=== PATIENT | male | born 1965 | race Hispanic/Latino ===

== ENCOUNTER 2017-08-27 05:54 | Day surgery (SDC) | payer BC ==
[2017-08-23 10:54] VITALS: BP 131/84
[2017-08-23 11:02] LABS: BASOPHILS % (AUTO) 0.5 % (0.0-5.0); EOSINOPHILS % (AUTO) 6.2 % (0.0-8.0); HEMATOCRIT 47.8 % (42-54); LYMPHOCYTES % (AUTO) 19.7 % (21.0-51.0); MEAN CORPUSCULAR HEMOGLOBIN 30.3 pg (27.0-33.0); MEAN CORPUSCULAR HGB CONC 33.4 g/dL (32.0-36.0); MEAN CORPUSCULAR VOLUME 90.8 fL (79-99); MONOCYTES % (AUTO) 5.7 % (3.0-13.0); NEUTROPHILS % (AUTO) 67.9 % (40.0-77.0); PLATELET COUNT (AUTO) 187 K/uL (130-400); RED BLOOD CELL COUNT(AUTO) 5.26 MIL/uL (4.50-6.20); RED CELL DISTRIBUTION WIDTH 13.4 % (11.0-15.5); WHITE BLOOD COUNT (AUTO) 6.6 K/uL (4.8-10.8)
[2017-08-23 11:09] LABS: APPEARANCE,URINE Cloudy (CLEAR); BILIRUBIN,URINE Negative (NEGATIVE); COLOR,URINE Yellow (YELLOW); GLUCOSE, URINE (UA) Negative (NEGATIVE); KETONES,URINE Negative (NEGATIVE); LEUKOCYTE ESTERASE ,URINE Trace (NEGATIVE); NITRATE,URINE Negative (NEGATIVE); OCCULT BLOOD,URINE Negative (NEGATIVE); PH,URINE 7.5 (5.0-8.0); PROTEIN,URINE Negative (NEGATIVE)
[2017-08-23 11:14] LABS: POTASSIUM 4.2 mmol/L (3.5-5.1)
[2017-08-23 11:22] LABS: AMORPHOUS SEDIMENT,UR Few /LPF (None Seen); BACTERIA,URINE Rare /HPF (None Seen); RBC,URINE 0-1 /HPF (0-1); SQUAMOUS EPITHELIAL CELL,UR Rare /LPF (0-2); WBC,URINE 0-1 /HPF (0-1)
[2017-08-23 11:29] LABS: INR 1.06 (0.85-1.15); PARTIAL THROMBOPLASTIN TIME 26.9 SEC (26.3-35.5); PROTHROMBIN TIME 11.1 SEC (9.6-11.6)
[2017-08-27] VITALS (9 sets, daily range): BP systolic 120–141; BP diastolic 82–96
[~2017-08-27] VITALS: Ht 177.8 cm; Wt 83.1 kg
[~2017-08-27 05:54] MED LIST: AMLO5TAB2 PO; DEXL60CA3 PO; DOXA2TAB2 PO; HYDR12.530 PO; OLME40TA18 PO; SODIUM CHLORIDE 0.9% 500ML 500 ML IV SCH
[2017-08-27] MEDS ORDERED: HEPARIN SODIUM 1000UNIT/ML 10ML VIAL ONE (07:11)
[2017-08-27] MEDS ORDERED: IOPAMIDOL-370 100 ML VIAL IV ONE (07:11)
[2017-08-27] MEDS ORDERED: IOPAMIDOL-370 75 ML VIAL IV ONE ×2 (07:11→08:10)
[2017-08-27] MEDS ORDERED: LIDOCAINE HCL 2% 20ML ONE (07:11)
[2017-08-27] MEDS ORDERED: NITROGLYCERIN 50 MG/D5% WATER 1 BOT ONE (07:12)
[2017-08-27] MEDS ORDERED: BIVALIRUDIN 250 MG/VIAL IV ONE (07:27)
[2017-08-27] MEDS ORDERED: MIDAZOLAM HCL 1 MG/ML 2ML VIAL ONE (07:51)
[2017-08-27] MEDS ORDERED: FENTANYL CITRATE PF 50 MCG/1 ML 2ML VIAL ONE (07:54)
[2017-08-27] MEDS ORDERED: SODIUM CHLORIDE 0.9% 1000ML 1,000 ML IV SCH (08:31)
[2017-08-27] MEDS ORDERED: SODIUM CHLORIDE 0.9% 1000ML 1,000 ML IV ONE (08:31)
[2017-08-27] MEDS ORDERED: ASPI-1181 PO (08:43)
[2017-08-27] MEDS ORDERED: ATOR20TA65 PO (08:43)
[2017-08-27 09:52] LABS: CHOLESTEROL 159 mg/dL (<200); HDL CHOLESTEROL 41 mg/dL (29-71); LDL DIRECT 107 mg/dL (0-99); TRIGLYCERIDES 88 mg/dL (30-200)
== END 2017-08-27 13:00 | disposition home or self-care (01) ==
LOC: DAH 05:54
PROVIDERS: ATTEND Internal Medicine Cardiovascular Disease
DX: I25.119 Atherosclerotic heart disease of native coronary artery with unspecified angina pectoris (principal); I50.42 Chronic combined systolic (congestive) and diastolic (congestive) heart failure; I42.9 Cardiomyopathy, unspecified; I11.0 Hypertensive heart disease with heart failure; E78.5 Hyperlipidemia, unspecified; K21.9 Gastro-esophageal reflux disease without esophagitis; Z98.890 Other specified postprocedural states; Z83.3 Family history of diabetes mellitus; Z80.9 Family history of malignant neoplasm, unspecified
CPT/HCPCS: 36415 ×2; 71045; 75625; 80048; 80061; 81001; 85025; 85610; 85730; 93005; 93458; 99156; 99157; C1760; C1894; J1644; J2250; J3010; J3490 ×2; J7030; Q9967 ×3; 99152; 99153; J0583

== ENCOUNTER → 2017-08-31 | Outpatient (CLI) | payer BC ==
[~2017-08-31] MED LIST changes: +ASPI-1181 PO; +ATOR20TA65 PO; -SODIUM CHLORIDE 0.9% 500ML 500 ML IV SCH
== END | disposition home or self-care (01) ==
LOC: RAH 15:56
PROVIDERS: ATTEND Internal Medicine Gastroenterology
DX: R93.3 Abnormal findings on diagnostic imaging of other parts of digestive tract (principal); M47.895 Other spondylosis, thoracolumbar region; Z90.49 Acquired absence of other specified parts of digestive tract
CPT/HCPCS: 74018

== ENCOUNTER 2017-09-21 06:30 | Day surgery (SDC) | payer BC ==
[~2017-09-21] VITALS: Ht 177.8 cm; Wt 81.6 kg
[~2017-09-21 06:30] MED LIST changes: -ASPI-1181 PO; -ATOR20TA65 PO; +SODIUM CHLORIDE 0.9% 1000ML 1,000 ML IV ONE
[2017-09-21 07:01] VITALS: BP 103/73
[2017-09-21] MEDS ORDERED: FENTANYL CITRATE PF 50 MCG/1 ML 2ML VIAL ONE (07:52)
[2017-09-21] MEDS ORDERED: PROPOFOL 10 MG/ML 20ML VIAL IV ONE (07:52)
[2017-09-21 08:02] VITALS: BP 98/62
== END 2017-09-21 09:10 ==
LOC: DAH 06:30
PROVIDERS: ATTEND Internal Medicine Gastroenterology
DX: K21.0 Gastro-esophageal reflux disease with esophagitis (principal); I10 Essential (primary) hypertension; G47.33 Obstructive sleep apnea (adult) (pediatric); K22.70 Barrett's esophagus without dysplasia; K44.9 Diaphragmatic hernia without obstruction or gangrene; Z79.899 Other long term (current) drug therapy; Z87.442 Personal history of urinary calculi
CPT/HCPCS: 43235; A4606; J2704; J3010; J7030

== ENCOUNTER 2018-07-26 11:37 | Emergency (ER) | payer BC ==
[~2018-07-26 11:37] MED LIST changes: -AMLO5TAB2 PO; +AMLO5TAB7 PO; -SODIUM CHLORIDE 0.9% 1000ML 1,000 ML IV ONE
[2018-07-26] MEDS ORDERED: OCTYL 2-CYANOACRYLATE 1 EACH TP ONE (12:03)
[2018-07-26] MEDS ORDERED: TETANUS/DIPHTHERIA TOXOID [ADULT] 0.5 ML VIAL IM ONE (12:04)
[2018-07-26] MEDS ORDERED: LIDOCAINE HCL 1% 20 ML VIAL ONE (12:10)
== END 2018-07-26 12:42 | disposition home or self-care (01) ==
LOC: EDH 11:37
DX: S61.012A Laceration without foreign body of left thumb without damage to nail, initial encounter (principal); I10 Essential (primary) hypertension; W23.0XXA Caught, crushed, jammed, or pinched between moving objects, initial encounter; Y93.89 Activity, other specified; Y92.098 Other place in other non-institutional residence as the place of occurrence of the external cause; Y99.8 Other external cause status
CPT/HCPCS: 12001; 90471; 90714

== ENCOUNTER 2019-08-04 05:56 | Day surgery (SDC) | payer BC ==
[~2019-08-04] VITALS: Ht 177.8 cm; Wt 81.6 kg
[~2019-08-04 05:56] MED LIST changes: -AMLO5TAB7 PO; +AMLO5TAB9 PO
[2019-08-04] MEDS ORDERED: SODIUM CHLORIDE 0.9% 1000ML 1,000 ML IV ONE (06:25)
[2019-08-04 07:12] VITALS: BP 122/91
[2019-08-04] MEDS ORDERED: PROPOFOL 10 MG/ML 20ML VIAL IV ONE ×2 (08:25)
[2019-08-04 08:56] VITALS: BP 101/70
[2019-08-04 09:00] VITALS: BP 96/70
[2019-08-04 09:06] VITALS: BP 102/69
[2019-08-04 09:11] VITALS: BP 122/84
[2019-08-04 09:20] VITALS: BP 124/77
== END 2019-08-04 09:30 | disposition home or self-care (01) ==
LOC: DAH 05:56 → ENDO 05:56
PROVIDERS: ATTEND Internal Medicine
DX: Z12.11 Encounter for screening for malignant neoplasm of colon (principal); K21.0 Gastro-esophageal reflux disease with esophagitis; K44.9 Diaphragmatic hernia without obstruction or gangrene; K29.70 Gastritis, unspecified, without bleeding; K57.30 Diverticulosis of large intestine without perforation or abscess without bleeding; I10 Essential (primary) hypertension; G47.30 Sleep apnea, unspecified; Z79.899 Other long term (current) drug therapy; Z90.49 Acquired absence of other specified parts of digestive tract; Z72.89 Other problems related to lifestyle; Z98.890 Other specified postprocedural states; Z83.71 Family history of colonic polyps; Z83.3 Family history of diabetes mellitus; Z82.5 Family history of asthma and other chronic lower respiratory diseases; Z82.49 Family history of ischemic heart disease and other diseases of the circulatory system
CPT/HCPCS: 43239; A4215; A4221; A4222; A4223; A4606; A4620; A4663; G0105; J2704 ×2; J7030; G0121

== ENCOUNTER → 2023-11-15 | Outpatient (CLI) | payer BC ==
[~2023-11-15] MED LIST changes: +AMLO-257 PO; -AMLO5TAB9 PO; -DEXL60CA3 PO; -DOXA2TAB2 PO; -HYDR12.530 PO
[2023-11-15 16:31] LABS: BASOPHILS # (AUTO) 0.03 K/uL (0.00-0.20); BASOPHILS % (AUTO) 0.3 % (0.0-5.0); EOSINOPHILS % (AUTO) 1.1 % (0.0-8.0); HEMATOCRIT 43.6 % (42-54); IMMATURE GRANULOCYTE ABSOLUTE 0.03 K/uL (0-1); LYMPHOCYTES # (AUTO) 1.3 K/uL (1.0-4.8); MEAN CORPUSCULAR HEMOGLOBIN 26.8 pg (27.0-33.0); MEAN CORPUSCULAR HGB CONC 31.9 g/dL (32.0-36.0); MEAN CORPUSCULAR VOLUME 84.2 fL (79-99); MONOCYTES # (AUTO) 0.6 K/uL (0.1-1.0); NEUTROPHILS # (AUTO) 7.4 K/uL (1.8-7.7); NEUTROPHILS % (AUTO) 78.3 % (40.0-77.0); PLATELET COUNT (AUTO) 227 K/uL (130-400); RED BLOOD CELL COUNT(AUTO) 5.18 MIL/uL (4.50-6.20); RED CELL DISTRIBUTION WIDTH 17.2 % (11.0-15.5); WHITE BLOOD COUNT (AUTO) 9.4 K/uL (4.8-10.8)
[2023-11-15 16:44] LABS: HEMOGLOBIN A1C 6.4 % (4.0-6.0)
[2023-11-15 16:56] LABS: ALBUMIN 3.9 g/dL (3.5-5.0); BILIRUBIN,TOTAL 0.3 mg/dL (0.2-1.0); CREATININE 0.9 mg/dL (0.5-1.3); THYROID STIMULATING HORMONE 2.37 uIU/mL (0.36-3.74); TOTAL PROTEIN, SERUM 7.5 g/dL (6.0-8.3)
== END | disposition home or self-care (01) ==
LOC: LAB 16:05
PROVIDERS: ATTEND Internal Medicine Cardiovascular Disease
DX: I10 Essential (primary) hypertension (principal); G47.33 Obstructive sleep apnea (adult) (pediatric)
CPT/HCPCS: 36415; 80053; 80061; 83036; 84439; 84443; 85025

== ENCOUNTER → 2024-06-04 | Outpatient (CLI) | payer OTHER | END | disposition home or self-care (01) | LOC: RAH 15:38 | PROVIDERS: ATTEND Nurse Practitioner Adult Health | DX: Z13.6 Encounter for screening for cardiovascular disorders (principal) | CPT/HCPCS: 75571 ==

== ENCOUNTER → 2024-06-27 | Outpatient (CLI) | payer BC ==
[2024-06-27 12:45] LABS: CHOLESTEROL 156 mg/dL (<200); HDL CHOLESTEROL 50 mg/dL (29-71); LDL DIRECT 84 mg/dL (0-99); TRIGLYCERIDES 61 mg/dL (30-200)
== END | disposition home or self-care (01) ==
LOC: LAB 08:44
PROVIDERS: ATTEND Internal Medicine Cardiovascular Disease
DX: E78.2 Mixed hyperlipidemia (principal)
CPT/HCPCS: 36415; 80061

== ENCOUNTER → 2024-09-16 | Outpatient (CLI) | payer BC ==
[~2024-09-16] MED LIST changes: +DOXA4TAB3 PO; +EZET10TA48 PO; +OLME20TA68 PO; +PANT40TA54 PO; +ROSU5TAB51 PO
[2024-09-16 09:33] LABS: CHOLESTEROL 100 mg/dL (<200); HDL CHOLESTEROL 55 mg/dL (29-71); LDL DIRECT 47 mg/dL (0-99); TRIGLYCERIDES 35 mg/dL (30-200)
== END | disposition home or self-care (01) ==
LOC: LAB 08:46
PROVIDERS: ATTEND Internal Medicine Cardiovascular Disease
DX: E78.5 Hyperlipidemia, unspecified (principal)
CPT/HCPCS: 36415; 80061

== ENCOUNTER 2024-09-18 08:26 | Day surgery (SDC) | payer BC ==
--- NOTE | 2024-09-16 09:07 | EKG ---
[facility] Test Date: 2024-09-16 Test Time: 09:57:57 Pat Name: ALYSSA QUINONES Department: [facility] Room: Gender: M Manager Services: [id number] : 1965 Requested By: KRISTEN POE Order Number: [id number] Reading MD: Candi Evans Measurements Intervals [place] Rate: 59 P: 50 FL: 180 QRS: 60 QRSD: 98 T: 51 QT: 446 QTc: 442 Interpretive Statements Sinus rhythm Compared to ECG 08/23/2017 10:50:41 Sinus arrhythmia no longer present Electronically Signed On 09-16-2024 09:52:39 [employer] OPERATOR by Candi Evans Please click the below link to view image of tracing.
[2024-09-16 09:17] LABS: BASOPHILS # (AUTO) 0.04 K/uL (0.00-0.20); BASOPHILS % (AUTO) 0.6 % (0.0-5.0); EOSINOPHILS # (AUTO) 0.29 K/uL (0.00-0.70); EOSINOPHILS % (AUTO) 4.4 % (0.0-8.0); HEMATOCRIT 43.8 % (42-54); IMMATURE GRANULOCYTE ABSOLUTE 0.02 K/uL (0-1); LYMPHOCYTES # (AUTO) 1.6 K/uL (1.0-4.8); LYMPHOCYTES % (AUTO) 23.3 % (21.0-51.0); MEAN CORPUSCULAR HEMOGLOBIN 28.6 pg (27.0-33.0); MEAN CORPUSCULAR HGB CONC 32.6 g/dL (32.0-36.0); MEAN CORPUSCULAR VOLUME 87.6 fL (79-99); MONOCYTES # (AUTO) 0.5 K/uL (0.1-1.0); MONOCYTES % (AUTO) 7.7 % (3.0-13.0); NEUTROPHILS # (AUTO) 4.3 K/uL (1.8-7.7); NEUTROPHILS % (AUTO) 63.7 % (40.0-77.0); PLATELET COUNT (AUTO) 181 K/uL (130-400); RED CELL DISTRIBUTION WIDTH 14.5 % (11.0-15.5); WHITE BLOOD COUNT (AUTO) 6.7 K/uL (4.8-10.8)
[2024-09-16 09:25] LABS: APPEARANCE,URINE CLEAR (CLEAR); BILIRUBIN,URINE NEGATIVE (NEGATIVE); COLOR,URINE YELLOW (YELLOW); GLUCOSE, URINE (UA) NEGATIVE (NEGATIVE); KETONES,URINE NEGATIVE (NEGATIVE); LEUKOCYTE ESTERASE ,URINE NEGATIVE Leu/uL (NEGATIVE); NITRATE,URINE NEGATIVE (NEGATIVE); OCCULT BLOOD,URINE NEGATIVE (NEGATIVE); PROTEIN,URINE 10 mg/dL (NEGATIVE); UROBILINOGEN,URINE 0.2 mg/dL (0.2-1.0)
[2024-09-16 09:28] LABS: CREATININE 0.9 mg/dL (0.5-1.3); POTASSIUM 4.9 mmol/L (3.5-5.1)
[2024-09-16 09:29] LABS: ADD UA MICROSCOPIC YES
[2024-09-16 09:30] LABS: INR 1.02 (0.85-1.15); PROTHROMBIN TIME 11.4 SEC (9.6-11.6)
[2024-09-16 09:31] LABS: MUCUS,URINE RARE LPF (None Seen); RBC,URINE 0-1 /HPF (0-1); WBC,URINE 0-1 /HPF (0-1)
[2024-09-16 09:32] LABS: PARTIAL THROMBOPLASTIN TIME 27.1 SEC (26.3-35.5)
[2024-09-16 09:37] LABS: B-TYPE NATRIURETIC PEPTIDE 5 pg/mL (0-100)
[2024-09-16 09:46] VITALS: BP 133/90; PULSE 66; RESP 18; TEMP 97.3
--- NOTE | 2024-09-16 10:37 | HMCIMG ---
Exam Type: CHEST 1VW Clinical Information: PREOP Comparison: None Findings: The lungs are clear of infiltrates. The heart is normal in size. The bony and soft tissue structures of the chest are unremarkable. Impression: Clear lungs.
[~2024-09-18] VITALS: Ht 177.8 cm; Wt 85.3 kg
[2024-09-18] VITALS (10 sets, daily range): BP systolic 116–154; BP diastolic 74–99; PULSE 47–72; RESP 10–18; TEMP 97–98.1
[~2024-09-18 08:26] MED LIST changes: -OLME40TA18 PO
[2024-09-18] MEDS: 0.9%NACL 1000ML 1,000 ML IV SCH (09:40)
[2024-09-18] MEDS ORDERED: IOHEXOL 350 MG/ML 100ML INFUS..BTL IV ONE (11:41)
[2024-09-18] MEDS ORDERED: IOHEXOL-350 50ML VIAL IV ONE (11:41)
[2024-09-18] MEDS ORDERED: HEParin-NS 1,000 UNIT/500 ML 1,000 ML IV ONE (11:41)
[2024-09-18] MEDS ORDERED: HEParin 10,000 UNIT/10ML (1,000 UNIT/ML) VIAL ONE (11:41)
[2024-09-18] MEDS ORDERED: BIVALIRUDIN 250 MG/VIAL IV ONE (11:41)
[2024-09-18] MEDS ORDERED: LIDOCAINE HCL 400MG/20ML VIAL ONE (11:41)
[2024-09-18] MEDS ORDERED: NITROGLYCERIN 50MG VIAL ONE (11:42)
[2024-09-18] MEDS ORDERED: MIDAZOLAM HCL 1 MG/ML 2ML VIAL ONE (12:08)
[2024-09-18] MEDS ORDERED: FENTanyl CITRate PF 50 MCG/1 ML 2ML VIAL ONE (12:08)
[2024-09-18] MEDS ORDERED: 0.9%NACL 1000ML 1,000 ML IV SCH (14:00)
--- NOTE | 2024-09-18 14:17 | PRN ---
DATE OF PROCEDURE: 09/18/2024 PROCEDURE PERFORMED: LEFT HEART CATHETERIZATION, LEFT VENTRICULOGRAM, LEFT AND RIGHT SELECTIVE CORONARY ANGIOGRAM, RIGHT COMMON FEMORAL ANGIOGRAM, AND CONSCIOUS SEDATION DELINQUENCY PREVENTION SOCIAL WORKER: KRISTEN POE MD, [facility] INDICATION: EXERTIONAL ANGINA PECTORIS, KNOWN CORONARY ARTERY DISEASE, LAW ENFORCEMENT REQUIRING PHYSICAL ACTIVITY PROCEDURE NOTE: After informed consent was obtained the patient was prepped and draped in the usual sterile fashion. A 6 Uzbek arterial sheath was inserted in the right femoral artery using a micropuncture technique with ultrasound guidance. This was performed after fluoroscopic identification of bony landmarks to facilitate a more accurate puncture of the right common femoral artery. The arterial victor th was aspirated and flushed. A 6 Uzbek pigtail catheter was then advanced over a J-tipped guidewire to the ascending aorta and was prolapsed into the left ventricle. The catheter was aspirated and flushed and pressure measurements were obtained. A left ventriculogram was then performed in a 30 DENNISON projection. A pullback procedure was then performed, and this catheter was rem jody over a J-tipped guidewire. A 6F JL-4 was then advanced to the ascending aorta over a J-tipped guidewire, was aspirated and flushed, and was used for selective left coronary angiograms in multiple obliquities. A JR-4 was advanced in a similar fashion to the ascending aorta over a J-tipped guidewire and was used for selective right coronary angiograms in multiple obliquities with findings as outlined below. A right common femoral angiogram was performed to assess suitability for Perclose suture closure and the Perclose device was deployed in standard fashion. Perclose suture closure was successful without bleeding or hematoma. The patient tolerated the procedure well and was returned to the holding area in stable condition. FINDINGS: LEFT HEART HEMODYNAMICS: Patient's LVEDP prior to LV-gram was 12 mm of mercury and after LV-gram 11 mm of mercury. There was no aortic valve gradient on pullback procedure. LEFT VENTRICULOGRAM: A left ventriculogram in a 30 degree DENNISON projection demonstrated an LVEF of 65% with normal wall motion. There was no angiographic MR. CORONARY ANGIOGRAM: LEFT MAIN: The left main coronary was normal. LEFT ANTERIOR DESCENDING: The left anterior descending had a 60% tubular stenosis without evidence of ulceration. The mid LAD was normal and the junction of the mid to distal LAD had a very short myocardial bridge without evidence of spasm or stenosis. The apical LAD appeared to be a small vessel relative to the left circumflex measuring approximately 1.5 mm by visual estimate. The 1st diagonal had a 20% ostial stenosis. The 2nd diagonal was normal. LEFT CIRCUMFLEX: The left circumflex was nondominant and normal as were the obtuse marginal branches. RAMUS INTERMEDIATE BRANCH: There was no ramus intermediate branch. RIGHT CORONARY ARTERY: The right coronary artery was dominant and normal as were the PDA and posterolateral branches. IMPRESSION: Exertional stable angina pectoris, multifactorial and due to myocardial bridging, endothelial dysfunction, and nonobstructive LAD stenosis. Normal LV systolic function and segmental wall motion with LVEF of 65%. No mitral regurgitation or aortic stenosis. Single-vessel nonobstructive coronary artery disease with 60% ostial and proximal LAD stenosis (60-65% area stenosis by IVUS), minimal luminal area 6.0 mm squared (less than 3.0 mm squared significant), IFR of 0.99 without drift (significant as less than 0.89). Minor mid LAD myocardial bridge. Small distal LAD with slow flow distally consistent with endothelial dysfunction. History of sinus bradycardia on beta-jerry therapy. RECOMMENDATION: Continued antiplatelet therapy and statin therapy (initiated April 2024 due to statin intolerance) Target LDL less than 55 Sublingual nitroglycerin p.r.n. chest pain COMPLICATIONS OF PROCEDURE: None, the patient tolerated the procedure well and was returned to his room in stable condition. HEMOSTASIS: Perclose suture closure successful without bleeding or hematoma. ESTIMATED BLOOD LOSS: 10 mL. CONTRAST TOTAL: 165 mL. KRISTEN POE MD Sep 18, 2024 14:17
[2024-09-18 15:54] LABS: CHOLESTEROL 112 mg/dL (<200); HDL CHOLESTEROL 48 mg/dL (29-71); LDL DIRECT 59 mg/dL (0-99); TRIGLYCERIDES 52 mg/dL (30-200)
== END 2024-09-18 18:04 | disposition home or self-care (01) ==
LOC: DAH 08:26
PROVIDERS: ATTEND Internal Medicine Cardiovascular Disease
DX: I25.118 Atherosclerotic heart disease of native coronary artery with other forms of angina pectoris (principal); R06.00 Dyspnea, unspecified; I11.0 Hypertensive heart disease with heart failure; I50.9 Heart failure, unspecified; E78.5 Hyperlipidemia, unspecified; I42.0 Dilated cardiomyopathy; G47.30 Sleep apnea, unspecified; K21.9 Gastro-esophageal reflux disease without esophagitis; E66.9 Obesity, unspecified; Z98.890 Other specified postprocedural states; Z68.27 Body mass index [BMI] 27.0-27.9, adult; Z79.899 Other long term (current) drug therapy; Z83.3 Family history of diabetes mellitus; Z82.49 Family history of ischemic heart disease and other diseases of the circulatory system
CPT/HCPCS: 80048; 83880; 85025; 85610; 85730; 81001; 36415 ×2; 71045; 93005; 93458; 80061; 92978; 93571; C1887; C1894 ×2; C1760; C1753; C1769; Q9965 ×2; J3010; J3490 ×2; J2250; J1644; J0583; Q9967 ×2; A4215; A4222; A4221; A4663; A4216; A4606; A4223 ×3; 99156; 99157